=== PATIENT | female | born 1955 | race Caucasian/White ===

== ENCOUNTER 2020-08-25 07:18 | Outpatient (REF) | payer MEDICARE, SELFPAY ==
[2020-08-25 12:10] LABS: Free T4 (Free Thyroxine) 1.21 ng/dL (0.71-1.85); Thyroid Stimulating Hormone 1.11 uIU/mL (0.32-4.0)
== END 2020-08-25 07:19 | disposition home or self-care (01) ==
LOC: HO.HMGCLDS 07:18
PROVIDERS: PCP Internal Medicine; Visit Provider Internal Medicine
DX: E03.9 Hypothyroidism, unspecified (principal)
CPT/HCPCS: 36415; 84439; 84443

== ENCOUNTER 2024-11-28 10:47 | Outpatient (REF) | payer MEDICARE, SELFPAY ==
--- NOTE | ~2024-11-28 | XR_ITS ---
EXAMINATION: XR KNEE 4 OR MORE VIEWS RIGHT HISTORY: RIGHT KNEE PAIN, INJURY. COMPARISON: There are no prior studies available for comparison. FINDINGS: Four views of the right knee are submitted. Osseous mineralization is normal. There is no fracture or dislocation. There is mild degenerative change of the medial compartment with spurring. The joint spaces are maintained. There is a moderate suprapatellar joint effusion. XR/XR knee RT 4V IMPRESSION: Moderate joint effusion. Mild degenerative change of the medial compartment. Electronically signed by: Keith Guzman MD 11/28/2024 11:32 AM EDT
== END 2024-11-28 10:48 | disposition home or self-care (01) ==
LOC: HO.HMGCX 10:47
PROVIDERS: Visit Provider Internal Medicine
DX: M25.561 Pain in right knee (principal)
CPT/HCPCS: 73564

== ENCOUNTER → 2024-11-28 10:55 | Outpatient (BNV) | payer MEDICARE, SELFPAY | PROVIDERS: Visit Provider Radiology Diagnostic Radiology | DX: M25.461 Effusion, right knee (principal) | CPT/HCPCS: 73564 ==

== ENCOUNTER 2025-03-07 08:50 | Outpatient (AMB) | payer MEDICARE, SELFPAY ==
--- NOTE | 2025-03-07 08:59 | A.OFFPC_ITS ---
Vital Signs 03/07/25 09:13 Height 5 ft 0.24 in Weight 148 lb BMI 28.7 BP 132/61 Respiration 14 Pulse 72 Pulse Source Pulse Oximeter Temp 97.8 F Temp Source Temporal Artery Scan Pulse Oximetry (%) 98 Oxygen Delivery Method Room Air Intake Visit Reasons: Est Care/Dr. 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 Accompanied by: Self / Same As Patient Allergies Sulfa (Sulfonamide Antibiotics) (SULFA(SULFONAMIDE ANTIBIOTICS)) Allergy (Unknown, Unverified 03/07/25 09:29) SWELLING sulfa meds Allergy (Mild, Uncoded 03/07/25 09:29) Unknown Medication List - Last Reconciled 03/07/25 by Princess Dupree PA-C enalapril maleate 20 mg PO DAILY hydrochlorothiazide 12.5 mg PO DAILY levothyroxine mcg PO levothyroxine mcg PO metoprolol succinate ER 50 mg PO DAILY simvastatin 40 mg PO Tobacco use date assessed: 03/07/25 Fall risk assessment: No Falls in past year Last assessed Fall Risk: 03/07/25 Dental Screening Dental Screen Date: 03/07/25 Did you have a dental visit in the last 12 months?: Yes Did you have a dental problem in the last 6 months where you did not have access to dental care?: No Was dental information given to patient?: Patient has dentist HPI Est Care/Dr. Pham ~HTN, Cholesterol, Thyroid HPI Details The patient is a 69-year-old female presenting to establish a new primary care provider as her primary care provider Dr. Pham retired and management of chronic conditions. She has a history of essential hypertension, managed with anapronil and hydrochlorothiazide, and hypothyroidism, for which she alternates between 75 mg and 50 mg of levothyroxine daily. Additionally, she is on metoprolol extended release and simvastatin for hyperlipidemia. The patient underwent a mammogram recently at [facility], though the results were not brought to the visit. She has not had a colonoscopy in approximately 10 years, with the last procedure possibly performed by Jaz Owusu at [place]. The patient is considering a colonoscopy over a Cologuard test due to concerns about the latter's accuracy. She does not recall the last time she had a bone density scan and is undecided about scheduling another. Her previous physician, Dr. Garrison, conducted a physical examination and blood work in October, which were reported as normal, including diabetes screening. The patient has been seeing Dr. Garrison for about 20 years and reports no recent changes in her health status. Social History - Family status: Lives with , no assistance required for activities of daily living [facility] Medical History (Updated 03/07/25 @ 10:18 by Princess Dupree PA-C) Overweight with body mass index (BMI) of 28 to 28.9 in adult Colon cancer screening Preventative health care History of mammogram Hyperlipidemia Hypothyroidism Hypertension Surgical History (Updated 03/07/25 @ 10:18 by Princess Dupree PA-C) History of colonoscopy Family History Father Heart attack Mother No problems noted. Social History Housing: House Alcohol intake: current Alcohol intake frequency: holidays/special occasions only Patient Tobacco Use Status: Former Tobacco user service: No Current occupational status: retired Cognitive needs: No Hearing needs: No Vision needs: No Questionnaire PHQ-9 Over the last 2 weeks, how often have you been bothered by any of the following problems? 1. Little interest or pleasure in doing things: not at all 2. Feeling down, depressed, or hopeless: not at all 3. Trouble falling or staying asleep, or sleeping too much: not at all 4. Feeling tired or having little energy: not at all 5. Poor appetite or overeating: not at all 6. Feeling bad about yourself - or that you are a failure or have let yourself or your family down: not at all 7. Trouble concentrating on things, such as reading the newspaper or watching television: not at all 8. Moving or speaking so slowly that other people could have noticed. Or the opposite - being so fidgety or restless that you have been moving around a lot more than usual: not at all 9. Thoughts that you would be better off or of hurting yourself in some way: not at all Total score: 0 Depression Screening Interpretation: Negative Depression Screening Done: Yes 15147 - PHQ-9 Billing: Yes Source: Developed by Drs. Keith Rivera, Edgard Romero and colleagues, with an educational mindy from [employer]. Thrive Questionnaire Date Thrive assessed: 03/07/25 I am a: Patient What is your living situation today?: I have a steady place to live Within the past 12 months, did the food you bought not last and you didn't have the money to get more?: Never true Within the past 12 months, did you worry whether your food would run out before you got money to buy more?: Never true Do you have trouble paying for medicines?: No Do you have trouble getting transportation to medical appointments?: No Do you have trouble paying your heating and electricity bill?: No Do you have trouble taking care of your child, family member or friend?: No Do you have trouble with day-to-day activities such as bathing, preparing meals, shopping, managing finances, etc.?: No Are you currently unemployed and looking for a job?: No Are you interested in more education?: No Please select the resources that you would like help with: None THRIVE Score: 0 AUDIT C Alcohol Use Questionnaire (AUDIT-C) 1. How often do you have a drink containing alcohol?: Monthly or less 2. How many drinks containing alcohol do you have on a typical day when you are drinking?: 1 or 2 3. How often do you have six or more drinks on one occasion?: Never Total Score: 1 Score Reviewed/Action Taken: No JAIMIE-7 AMB Questionnaire JAIMIE-7 Date JAIMIE - 7 assessed: 03/07/25 Feeling nervous, anxious, or on edge: 0 = Not at all Not being able to stop or control worryin = Not at all Worrying too much about different things: 0 = Not at all Trouble relaxin = Not at all Being so restless that it is hard to sit still: 0 = Not at all Becoming easily annoyed or irritable: 0 = Not at all Feeling afraid as if something awful might happen: 0 = Not at all Total JAIMIE-7 score (0-4 normal; 5-9 mild; 10-14 moderate; 15-21 severe): 0 Source: Developed by Milli Jaramillo Kurt Kroenke and colleagues, with an educational mindy from [employer]. JAIMIE-7 Assessment Billing JAIMIE-7 Assessment Tool: JAIMIE-7 Assessment 89450 Review of Systems Const Details: - Cardiovascular: Denies chest pain - Respiratory: Denies dyspnea - Musculoskeletal: Denies recent falls, no use of assistive devices All systems reviewed & are unremarkable except as noted in HPI and below Physical exam (Primary Care) Vital Signs: Last Vital Signs Temp 97.8 F 03/07/25 09:13 Pulse 72 03/07/25 09:13 Resp 14 03/07/25 09:13 BP 132/61 03/07/25 09:13 Pulse Ox 98 03/07/25 09:13 Oxygen Delivery Method Room Air 03/07/25 09:13 Care Plan Goal for BP management: <140/90 at goal BMI result Body Mass Index 28.7 BMI Assessment/Plan discussion: High BMI High, discussed plan: lifestyle, weight reduction, dietary, physical activity, alcohol moderation and other Tobacco/Smoking Status: Tobacco use Status Tobacco use date assessed 03/07/25 03/07/25 09:02 Patient Tobacco Use Status Former Tobacco user 03/07/25 09:21 PHQ-9: PHQ-9 Score PHQ-9: Total score 0 03/07/25 09:29 Depression Screening Interpretation: Negative Thrive Assessment: Date of Thrive Assessment Date Thrive assessed 03/07/25 03/07/25 09:02 Const Other: Appearance: Alert. Oriented X3. No acute distress. Head: Normal external exam. Normocephalic. Atraumatic. Eyes: Pupils are equal, round, and reactive to light. Extraocular movements intact. Conjunctiva and sclera normal. Eyelids normal. Ears: External auditory canal normal. Tympanic membranes normal. Throat: Pharynx normal. Uvula midline. Moist mucous membranes. Neck: Normal inspection. Neck supple. Full range of motion. Cardiovascular: Normal heart rate and rhythm. Heart sound normal. No murmurs noted. Pulses normal throughout. Respiratory: No respiratory distress. Painless inspiration. Breath sounds normal. No wheezes/rales/rhonchi noted. Chest nontender. No accessory muscle usa ge noted or decreased air movement noted. Abdomen: Soft and nontender. No distention noted. No organomegaly noted. Back: No costovertebral angle tenderness. Full range of motion noted. Skin: Skin warm and dry. Normal skin color. Normal skin turgor. No rashes/lesions/lacerations noted. Extremities: No lower extremity edema. No calf tenderness noted. Extremities exhibit normal range of motion. Neuro: Oriented X 3. No motor deficit. No sensory deficit. Reflexes normal. Coding Level of Care Code New Pt Level 4 (36143) Complex EM visit Add On G2211 Diagnoses Hypertension I10 Hypothyroidism E03.9 Hyperlipidemia E78.5 Preventative health care Z00.00 Colon cancer screening Z12.11 Overweight with body mass index (BMI) of 28 to 28.9 in adult E66.3; Z68.28 Additional Codes JAIMIE-7 Assessment Billing - JAIMIE-7 Assessment Tool: JAIMIE-7 Assessment 21244 ([id number]) PHQ-9 - 97292 - PHQ-9 Billing: Yes ([id number]) Assessment & Plan Assessment & Plan (1) Hypertension: Code(s): I10 - Essential (primary) hypertension Category: Medical Plan: The patient is currently on anapronil and hydrochlorothiazide for hypertension management. Her blood pressure was reported as normal during the visit. (2) Hypothyroidism: Code(s): E03.9 - Hypothyroidism, unspecified Category: Medical Plan: The patient manages her hypothyroidism by alternating between 75 mg and 50 mg of levothyroxine daily. (3) Hyperlipidemia: Code(s): E78.5 - Hyperlipidemia, unspecified Category: Medical Plan: The patient is on simvastatin for hyperlipidemia management. (4) Preventative health care: Code(s): Z00.00 - Encounter for general adult medical examination without abnormal findings Category: Medical Plan: The patient recently underwent a mammogram at [facility], though results were not reviewed during this visit. The patient is undecided about scheduling a bone density scan as she does not recall the last time she had one. (5) Colon cancer screening: Code(s): Z12.11 - Encounter for screening for malignant neoplasm of colon Category: Medical Plan: The patient has not had a colonoscopy in approximately 10 years and is considering scheduling one instead of a Cologuard test. (6) Overweight with body mass index (BMI) of 28 to 28.9 in adult: Code(s): E66.3 - Overweight; Z68.28 - Body mass index [BMI] 28.0-28.9, adult Category: Medical Plan: Patient to improve diet and exercise regimen. Condition is chronic and stable continue to monitor. Plan Plan Patient was informed and verbally consented to the use of an ambient scribe for clinic note documentation during this visit. 1. Essential Hypertension The patient is currently on anapronil and hydrochlorothiazide for hypertension management. Her blood pressure was reported as normal during the visit. 2. Hypothyroidism The patient manages her hypothyroidism by alternating between 75 mg and 50 mg of levothyroxine daily. 3. Hyperlipidemia The patient is on simvastatin for hyperlipidemia management. 4. Preventative Care: Mammogram The patient recently underwent a mammogram at [facility], though results were not reviewed during this visit. 5. Preventative Care: Colonoscopy The patient has not had a colonoscopy in approximately 10 years and is consi dering scheduling one instead of a Cologuard test. 6. Preventative Care: Bone Density Scan The patient is undecided about scheduling a bone density scan as she does not recall the last time she had one. During the visit, we discussed the patient's current management of hypertension, hypothyroidism, and hyperlipidemia. We reviewed her recent mammogram and the need for a colonoscopy, given the 10-year gap since her last one. The patient expressed a preference for a colonoscopy over a Cologuard test due to concerns about accuracy. We also discussed the option of a bone density scan, though the patient is undecided about scheduling it. I advised her to continue her current medication regimen and to return for a follow-up in October for her annual physical and blood work. Orders: Orders C Reactive Protein Today Z00.00 - Encounter for general adult medical examination without abnormal findings Complete Blood Count Auto Diff Today Z00.00 - Encounter for general adult medical examination without abnormal findings Comprehensive [place]. Panel Fast Today Z00.00 - Encounter for general adult medical examination without abnormal findings Liver Panel Today Z00.00 - Encounter for general adult medical examination without abnormal findings Magnesium Today Z00.00 - Encounter for general adult medical examination without abnormal findings Vitamin B12 and Folate Today Z00.00 - Encounter for general adult medical examination without abnormal findings Vitamin D 25-OH Total Today Z00.00 - Encounter for general adult medical examination without abnormal findings TSH reflex Free T4 Today Z00.00 - Encounter for general adult medical examination without abnormal findings Hemoglobin A1c Today Z00.00 - Encounter for general adult medical examination without abnormal findings Lipid Panel Today Z00.00 - Encounter for general adult medical examination without abnormal findings Referrals Gastroenterology Referral Z12.11 - Encounter for screening for malignant neoplasm of colon Patient Instructions: - Continue current medications as prescribed. - Schedule a colonoscopy given the 10-year gap since the last one. - Consider scheduling a bone density scan. - Return for a follow-up visit in October for annual physical and blood work.
[2025-03-07 09:13] VITALS: BP 132/61; PULSE 72; RESP 14; TEMP 36.6; O2SAT 98; BMI 28.7
== END 2025-03-07 09:35 | disposition home or self-care (01) ==
LOC: HO.HMCSH 08:50
PROVIDERS: PCP Physician Assistant Medical; Visit Provider Physician Assistant Medical
DX: I10 Essential (primary) hypertension (principal); E03.9 Hypothyroidism, unspecified; E78.5 Hyperlipidemia, unspecified; Z00.00 Encounter for general adult medical examination without abnormal findings; Z12.11 Encounter for screening for malignant neoplasm of colon; E66.3 Overweight; Z68.28 Body mass index [BMI] 28.0-28.9, adult

== ENCOUNTER → 2025-03-07 08:50 | Outpatient (BNVA) | payer MEDICARE, SELFPAY | PROVIDERS: PCP Physician Assistant Medical; Visit Provider Physician Assistant Medical | DX: Z00.00 Encounter for general adult medical examination without abnormal findings (principal); I10 Essential (primary) hypertension; E03.9 Hypothyroidism, unspecified; E78.5 Hyperlipidemia, unspecified; E66.3 Overweight; Z68.28 Body mass index [BMI] 28.0-28.9, adult | CPT/HCPCS: 96127; 99202 ==